=== PATIENT | female | born 1955 | race Caucasian/White ===

== ENCOUNTER → 2017-10-16 | Outpatient (CLI) | payer BC ==
--- NOTE | 2017-10-16 17:11 | PE ---
EXAMINATION TYPE: PET CT fusion skull to thigh DATE OF EXAM: 10/16/2017 COMPARISON: NONE HISTORY: Pulmonary nodules (R 91.1) per order. History of bladder surgery june 2011 for cancer per p atient. TECHNIQUE: Following the intravenous administration of 14.976 mCi of F-18 FDG, whole body images are performed from the skull base to the midthigh. Images are reviewed on the computer in the coronal, axial, and sagittal planes. Reconstructed rotating images are created on independent workstation and reviewed on the computer. A noncontrast CT is performed in conjunction with the PET scan. SCAN: Initial Scan FINDINGS: SKULL BASE AND NECK: No suspicious hypermetabolic uptake is seen. CHEST, MEDIASTINUM, AND HILAR REGION: There are scattered small nodules identified bilaterally most p rominent in the bilateral upper lobes. For reference anterior right upper lobe nodule measures 5 x 4 mm axial image 70. For reference anterior left upper lobe nodule measures 6 x 5 mm axial image 66. No suspicious hypermetabolic uptake in nodules or remainder of the thorax is identified. ABDOMEN AND PELVIS: No areas of abnormal hypermetabolic uptake are present. OSSEOUS STRUCTURES: No suspicious areas of abnormal hypermetabolic uptake are identified. OTHER CT: Mild calcified plaque left greater than right carotid bulb level is present. The liver is markedly hypodense consistent with diffuse fatty infiltration. There is moderate calcified plaque of aorta extending into branch vessels. There is multilevel facet arthropathy in the mid to lower lumbar spine. IMPRESSION: No suspicious hypermetabolic uptake to suggest malignancy is identified. Advise short-ter m CT follow-up in 3-6 months time to reassess pulmonary nodules as given history of bladder cancer ea rly metastatic disease cannot be excluded despite negative PET/CT due to subcentimeter nodularity.
== END | disposition home or self-care (01) ==
LOC: RADPETMAIN 10:51 → EDBD 10:51
PROVIDERS: ATTEND General Practice
DX: R91.1 Solitary pulmonary nodule (principal); R59.1 Generalized enlarged lymph nodes; Z85.51 Personal history of malignant neoplasm of bladder
CPT/HCPCS: 78815; A9552